=== PATIENT | female | born 1985 | race Caucasian/White ===

== ENCOUNTER → 2020-06-29 | Outpatient (CLI) | payer OTHER | END | disposition home or self-care (01) | LOC: PLD 19:58 → LAB SHORT 19:58 | DX: R82.90 Unspecified abnormal findings in urine (principal) | CPT/HCPCS: 87086 ==

== ENCOUNTER 2021-02-26 09:09 | Emergency (ER) | payer OTHER ==
[~2021-02-26] VITALS: Ht 162.6 cm; Wt 81.7 kg
== END 2021-02-26 10:35 | disposition home or self-care (01) ==
LOC: ER 09:09
DX: S61.216A Laceration without foreign body of right little finger without damage to nail, initial encounter (principal); W25.XXXA Contact with sharp glass, initial encounter
CPT/HCPCS: 12002; 99282-25

== ENCOUNTER 2021-03-09 12:22 | Emergency (ER) | payer OTHER ==
[~2021-03-09] VITALS: Ht 162.6 cm; Wt 81.7 kg
== END 2021-03-09 12:32 | disposition home or self-care (01) ==
LOC: ER 12:22
DX: S61.216D Laceration without foreign body of right little finger without damage to nail, subsequent encounter (principal)